=== PATIENT | female | born 1955 | race Caucasian/White ===

== ENCOUNTER 2016-07-13 15:05 | Emergency (ER) | payer MEDICARE, OTHER ==
[~2016-07-13] VITALS: Ht 160 cm; Wt 75.4 kg
[2016-07-13 15:22] VITALS: BP 97/57
[2016-07-13] MEDS ORDERED: LORA0.5T2 PO (15:30)
[2016-07-13] MEDS ORDERED: BETH5 PO (15:33)
[2016-07-13] MEDS ORDERED: LISI-660 PO (15:33)
[2016-07-13] MEDS ORDERED: CLOZ25TA4 PO (15:33)
[2016-07-13] MEDS ORDERED: DULO20CA30 PO (15:33)
[2016-07-13] MEDS ORDERED: TOPI25 PO (15:33)
[2016-07-13] MEDS ORDERED: CITA10TA68 PO (15:33)
[2016-07-13] MEDS ORDERED: ACETAMINOPHEN 325 MG TABLET PO ONE (16:15)
[2016-07-13] MEDS ORDERED: HYDROCODONE/ACETAMINOPHEN 10-325 MG TABLET PO ONE (17:00)
== END 2016-07-13 19:05 | disposition home or self-care (01) ==
LOC: EMS 15:06
DX: S73.102A Unspecified sprain of left hip, initial encounter (principal); M54.30 Sciatica, unspecified side; W19.XXXA Unspecified fall, initial encounter; Y93.89 Activity, other specified; Y92.89 Other specified places as the place of occurrence of the external cause; Y99.8 Other external cause status
CPT/HCPCS: 73521; 99284

== ENCOUNTER → 2017-01-14 | Outpatient (CLI) | payer MEDICARE, OTHER, MEDICAID ==
[~2017-01-14] MED LIST: BETH5 PO; CITA10TA68 PO; CLOZ25TA4 PO; DULO20CA30 PO; LISI-660 PO; LORA0.5T2 PO; TOPI25 PO
== END | disposition home or self-care (01) ==
LOC: RADPV 09:40
PROVIDERS: ATTEND Hospitalist
DX: D25.2 Subserosal leiomyoma of uterus (principal)
CPT/HCPCS: 76770

== ENCOUNTER 2017-05-08 20:49 | Inpatient (IN) | payer MEDICARE, OTHER ==
[~2017-05-08] VITALS: Ht 160 cm; Wt 78.5 kg
[2017-05-08 21:05] VITALS: BP 117/76
[2017-05-08] MEDS ORDERED: CLON.5 PO (22:00)
[2017-05-08] MEDS ORDERED: BETH25 PO (22:00)
[2017-05-08] MEDS ORDERED: CLOZ100 PO ×2 (22:00)
[2017-05-08] MEDS ORDERED: HYDR-4061 PO (22:00)
[2017-05-08] MEDS ORDERED: LORA0.5T2 PO (22:00)
[2017-05-08] MEDS ORDERED: CloZAPine 100 MG TABLET PO SCH (22:45)
[2017-05-08] MEDS ORDERED: ACETAMINOPHEN 325 MG TABLET PO PRN (22:45)
[2017-05-08] MEDS ORDERED: ONDANSETRON HCL 4 MG/2 ML VIAL IVP PRN (22:45)
[2017-05-08] MEDS ORDERED: LORazepam 2 MG/ML VIAL IVP PRN (22:45)
[2017-05-08] MEDS ORDERED: CloZAPine 100 MG TABLET PO ONE (23:15)
[2017-05-08] MEDS: MVI, ADULT NO.1 WITH VIT K 10 ML in DEXTROSE 5%-0.9% SODIUM CHL 1,000 ML IV SCH ×2 (23:19)
[2017-05-08 23:38] LABS: BASOPHILS % (AUTO) 0.5 % (0.0-2.0); EOSINOPHILS % (AUTO) 1.2 % (1.0-6.0); HEMATOCRIT 35.6 % (36-46); HEMOGLOBIN 11.8 g/dL (12.0-16.0); LYMPHOCYTES # (AUTO) 3.2 K/uL (1.0-4.8); LYMPHOCYTES % (AUTO) 24.6 % (22.0-44.0); MEAN CORPUSCULAR HEMOGLOBIN 29.8 pg (26.0-34.0); MEAN CORPUSCULAR HGB CONC 33.2 G/dL (31.0-37.0); MEAN CORPUSCULAR VOLUME 90 fL (80-100); MONOCYTES # (AUTO) 1.5 K/uL (0.1-1.0); MONOCYTES % (AUTO) 11.3 % (2.0-9.0); NEUTROPHILS # (AUTO) 8.1 K/uL (1.8-7.7); NEUTROPHILS % (AUTO) 62.4 % (40.0-70.0); PLATELET COUNT (AUTO) 404 K/uL (150-450); RED BLOOD CELL COUNT(AUTO) 3.97 MIL/uL (4.00-5.20); RED CELL DISTRIBUTION WIDTH 14.5 % (11.5-14.5)
[2017-05-08 23:45] VITALS: BP 109/66
[2017-05-08 23:47] LABS: ANION GAP 7 mmol/L (8-16); CALCIUM, TOTAL 8.8 mg/dL (8.8-10.5); CARBON DIOXIDE 28 mmol/L (22-29); CHLORIDE 105 mmol/L (98-107); CREATININE 0.88 mg/dL (0.60-1.30); GLOMERULAR FILTR. RATE CALC > 60 mL/min (>60); GLUCOSE,RANDOM 89 mg/dL (70-110); POTASSIUM 3.7 mmol/L (3.5-5.1); SODIUM SERUM 140 mmol/L (136-145); UREA NITROGEN, BLOOD 21 mg/dL (7-18)
[2017-05-08 23:56] LABS: ALANINE AMINOTRANSFERASE 34 U/L (12-78); ALBUMIN 3.2 g/dL (3.4-5.0); ALKALINE PHOSPHATASE 102 U/L (46-116); ASPARTATE AMINOTRANSFERASE 21 U/L (15-37); BILIRUBIN,TOTAL 0.3 mg/dL (0.1-1.0); TOTAL PROTEIN, SERUM 6.5 g/dL (6.4-8.2)
[2017-05-09 04:15] VITALS: BP 116/73
[2017-05-09 04:44] LABS: APPEARANCE,URINE CLEAR (CLEAR); BILIRUBIN,URINE NEGATIVE (NEGATIVE); GLUCOSE, URINE (UA) NEGATIVE (NEGATIVE); KETONES,URINE NEGATIVE (NEGATIVE); LEUKOCYTE ESTERASE ,URINE TRACE (NEGATIVE); NITRATE,URINE NEGATIVE (NEGATIVE); OCCULT BLOOD,URINE NEGATIVE (NEGATIVE); PROTEIN,URINE NEGATIVE (NEGATIVE); UROBILINOGEN,URINE 0.2 mg/dL (<=1.0)
[2017-05-09 05:13] LABS: RBC,URINE 0-2 /HPF (0-2)
[2017-05-09 05:14] LABS: BACTERIA,URINE Rare /HPF (None Seen); SQUAMOUS EPITHELIAL CELL,UR Rare /LPF (None Seen)
[2017-05-09 07:57] VITALS: BP 151/93
[2017-05-09] MEDS: BETHANECHOL CHLORIDE 25 MG TABLET PO SCH (08:31)
[2017-05-09] MEDS: CITALOPRAM HYDROBROMIDE 20 MG TABLET PO SCH (09:00)
[2017-05-09] MEDS ORDERED: CITALOPRAM HYDROBROMIDE 10 MG TABLET PO SCH ×2 (09:00)
[2017-05-09] MEDS: ClonazePAM 0.5 MG TABLET PO SCH ×2 (10:00→20:53)
[2017-05-09] MEDS: GABAPENTIN 300 MG CAPSULE PO SCH ×3 (10:00→20:53)
[2017-05-09] MEDS: DULoxetine HCL 60 MG CAPSULE PO SCH (10:00)
[2017-05-09] MEDS: DOCUSATE SODIUM 250 MG CAPSULE PO SCH ×2 (10:00→20:53)
[2017-05-09] MEDS: METOPROLOL SUCCINATE 50 MG ER TABLET PO SCH (10:00)
[2017-05-09] MEDS: CloZAPine 100 MG TABLET PO SCH ×2 (10:00→20:54)
[2017-05-09] MEDS: LISINOPRIL 5 MG TABLET PO SCH (10:00)
[2017-05-09] MEDS: MONTELUKAST SODIUM 10 MG TABLET PO SCH (10:00)
[2017-05-09] MEDS: CALCIUM OYSTER SHELL 500 MG TABLET PO SCH ×3 (10:00→20:53)
[2017-05-09 11:31] VITALS: BP 133/85
[2017-05-09] MEDS: HYDROCODONE/ACETAMINOPHEN 5-325 MG TABLET PO PRN ×2 (13:34→20:58)
[2017-05-09] MEDS: MVI, ADULT NO.1 WITH VIT K 10 ML in DEXTROSE 5%-0.9% SODIUM CHL 1,000 ML IV SCH ×2 (15:26)
[2017-05-09] MEDS: RisperiDONE 2 MG TABLET PO SCH (15:26)
[2017-05-09 16:19] VITALS: BP 139/87
[2017-05-09] MEDS ORDERED: IPRATROPIUM BROMIDE 0.5 MG/2.5 ML NEB SOLUTION NEB PRN (16:30)
[2017-05-09] MEDS ORDERED: 0.9% SODIUM CHLORIDE 10 ML SYRINGE IVP PRN (16:30)
[2017-05-09] MEDS ORDERED: ZOLPIDEM TARTRATE 5 MG TABLET PO PRN (16:30)
[2017-05-09] MEDS ORDERED: ALBUTEROL SULFATE 2.5 MG/0.5 ML NEB SOLUTION NEB PRN (16:30)
[2017-05-09] MEDS ORDERED: HYDROCODONE/ACETAMINOPHEN 5-325 MG TABLET PO PRN (16:30)
[2017-05-09] MEDS ORDERED: ACETAMINOPHEN 650 MG/20.3 ML SOLUTION UDCUP PO PRN (16:30)
[2017-05-09] MEDS: ALBUTEROL SULFATE 2.5 MG/0.5 ML NEB SOLUTION NEB SCH ×2 (16:42→22:30)
[2017-05-09] MEDS: IPRATROPIUM BROMIDE 0.5 MG/2.5 ML NEB SOLUTION NEB SCH ×2 (16:42→22:30)
[2017-05-09] MEDS: PANTOPRAZOLE SODIUM 40 MG/VIAL IVP SCH (17:31)
[2017-05-09] MEDS: CefTRIAXone SODIUM 1 GM in DEXTROSE 5%-WATER 10 ML IV SCH (17:31)
[2017-05-09] MEDS: HEPARIN SODIUM,PORCINE 5,000 UNITS/ML VIAL SQ SCH ×2 (17:45→23:47)
[2017-05-09 19:48] VITALS: BP 113/70
[2017-05-09] MEDS: TOPIRAMATE 100 MG TABLET PO SCH (20:54)
[2017-05-09] MEDS ORDERED: TOPIRAMATE 25 MG TABLET PO SCH (21:00)
[2017-05-09] MEDS ORDERED: MVI, ADULT NO.1 WITH VIT K 10 ML in DEXTROSE 5%-WATER 1,000 ML IV SCH ×2 (22:05)
[2017-05-10 04:49] VITALS: BP 135/77
[2017-05-10 06:46] LABS: BASOPHILS % (AUTO) 0.6 % (0.0-2.0); EOSINOPHILS % (AUTO) 1.4 % (1.0-6.0); HEMATOCRIT 37.1 % (36-46); HEMOGLOBIN 12.4 g/dL (12.0-16.0); LYMPHOCYTES # (AUTO) 1.9 K/uL (1.0-4.8); LYMPHOCYTES % (AUTO) 22.5 % (22.0-44.0); MEAN CORPUSCULAR HEMOGLOBIN 30.3 pg (26.0-34.0); MEAN CORPUSCULAR HGB CONC 33.5 G/dL (31.0-37.0); MEAN CORPUSCULAR VOLUME 91 fL (80-100); MONOCYTES % (AUTO) 11.6 % (2.0-9.0); NEUTROPHILS # (AUTO) 5.4 K/uL (1.8-7.7); NEUTROPHILS % (AUTO) 63.9 % (40.0-70.0); PLATELET COUNT (AUTO) 439 K/uL (150-450); RED CELL DISTRIBUTION WIDTH 14.6 % (11.5-14.5)
[2017-05-10 06:52] LABS: ANION GAP 7 mmol/L (8-16); CALCIUM, TOTAL 8.7 mg/dL (8.8-10.5); CARBON DIOXIDE 27 mmol/L (22-29); CHLORIDE 107 mmol/L (98-107); CREATININE 0.83 mg/dL (0.60-1.30); GLOMERULAR FILTR. RATE CALC > 60 mL/min (>60); GLUCOSE,RANDOM 101 mg/dL (70-110); SODIUM SERUM 141 mmol/L (136-145); UREA NITROGEN, BLOOD 18 mg/dL (7-18)
[2017-05-10 07:45] VITALS: BP 143/94
[2017-05-10] MEDS: ALBUTEROL SULFATE 2.5 MG/0.5 ML NEB SOLUTION NEB SCH ×3 (08:19→20:25)
[2017-05-10] MEDS: PANTOPRAZOLE SODIUM 40 MG/VIAL IVP SCH (08:19)
[2017-05-10] MEDS: IPRATROPIUM BROMIDE 0.5 MG/2.5 ML NEB SOLUTION NEB SCH ×3 (08:19→20:25)
[2017-05-10] MEDS: HEPARIN SODIUM,PORCINE 5,000 UNITS/ML VIAL SQ SCH ×2 (08:20→16:08)
[2017-05-10] MEDS: ClonazePAM 0.5 MG TABLET PO SCH ×2 (08:21→20:47)
[2017-05-10] MEDS: GABAPENTIN 300 MG CAPSULE PO SCH ×3 (08:22→20:47)
[2017-05-10] MEDS: CloZAPine 100 MG TABLET PO SCH ×2 (08:23→20:47)
[2017-05-10] MEDS: CALCIUM OYSTER SHELL 500 MG TABLET PO SCH ×3 (08:24→20:47)
[2017-05-10] MEDS: MONTELUKAST SODIUM 10 MG TABLET PO SCH (08:24)
[2017-05-10] MEDS: METOPROLOL SUCCINATE 50 MG ER TABLET PO SCH (08:24)
[2017-05-10] MEDS: BETHANECHOL CHLORIDE 25 MG TABLET PO SCH (08:25)
[2017-05-10] MEDS: CITALOPRAM HYDROBROMIDE 20 MG TABLET PO SCH (08:26)
[2017-05-10] MEDS: DULoxetine HCL 60 MG CAPSULE PO SCH ×2 (08:26→22:29)
[2017-05-10] MEDS: RisperiDONE 2 MG TABLET PO SCH (08:26)
[2017-05-10] MEDS: DOCUSATE SODIUM 250 MG CAPSULE PO SCH ×2 (08:31→20:48)
[2017-05-10] MEDS: LISINOPRIL 5 MG TABLET PO SCH (08:36)
[2017-05-10] MEDS: POLYETHYLENE GLYCOL 3350 17 GM PACKET PO PRN (08:47)
[2017-05-10 11:20] VITALS: BP 127/86
[2017-05-10 15:10] VITALS: BP 141/88
[2017-05-10] MEDS: HYDROCODONE/ACETAMINOPHEN 5-325 MG TABLET PO PRN (18:15)
[2017-05-10] MEDS: CefTRIAXone SODIUM 1 GM in DEXTROSE 5%-WATER 10 ML IV SCH (18:17)
[2017-05-10 19:38] VITALS: BP 131/81
[2017-05-10] MEDS: TOPIRAMATE 100 MG TABLET PO SCH (20:47)
[2017-05-10] MEDS: MVI, ADULT NO.1 WITH VIT K 10 ML in DEXTROSE 5%-WATER 1,000 ML IV SCH ×2 (22:28)
[2017-05-10 23:00] VITALS: BP 131/75
[2017-05-11] MEDS: HEPARIN SODIUM,PORCINE 5,000 UNITS/ML VIAL SQ SCH ×2 (00:18→08:43)
[2017-05-11] MEDS: MVI, ADULT NO.1 WITH VIT K 10 ML in DEXTROSE 5%-WATER 1,000 ML IV SCH ×2 (00:18)
[2017-05-11] MEDS: ALBUTEROL SULFATE 2.5 MG/0.5 ML NEB SOLUTION NEB SCH ×2 (02:17→09:22)
[2017-05-11] MEDS: IPRATROPIUM BROMIDE 0.5 MG/2.5 ML NEB SOLUTION NEB SCH ×2 (02:17→09:22)
[2017-05-11 04:00] VITALS: BP 134/79
[2017-05-11 05:35] LABS: BASOPHILS % (AUTO) 0.6 % (0.0-2.0); EOSINOPHILS % (AUTO) 1.2 % (1.0-6.0); HEMATOCRIT 37.1 % (36-46); HEMOGLOBIN 12.7 g/dL (12.0-16.0); LYMPHOCYTES # (AUTO) 2.4 K/uL (1.0-4.8); LYMPHOCYTES % (AUTO) 22.9 % (22.0-44.0); MEAN CORPUSCULAR HEMOGLOBIN 30.9 pg (26.0-34.0); MEAN CORPUSCULAR HGB CONC 34.3 G/dL (31.0-37.0); MEAN CORPUSCULAR VOLUME 90 fL (80-100); MONOCYTES % (AUTO) 9.7 % (2.0-9.0); NEUTROPHILS % (AUTO) 65.6 % (40.0-70.0); PLATELET COUNT (AUTO) 425 K/uL (150-450); RED BLOOD CELL COUNT(AUTO) 4.12 MIL/uL (4.00-5.20); RED CELL DISTRIBUTION WIDTH 14.6 % (11.5-14.5)
[2017-05-11] MEDS ORDERED: ALENDRONATE SODIUM 70 MG TABLET PO SCH (06:30)
[2017-05-11 07:20] VITALS: BP 129/82
[2017-05-11] MEDS: PANTOPRAZOLE SODIUM 40 MG/VIAL IVP SCH (08:39)
[2017-05-11] MEDS: ClonazePAM 0.5 MG TABLET PO SCH (08:39)
[2017-05-11] MEDS: METOPROLOL SUCCINATE 50 MG ER TABLET PO SCH (08:39)
[2017-05-11] MEDS: DOCUSATE SODIUM 250 MG CAPSULE PO SCH (08:39)
[2017-05-11] MEDS: HYDROCODONE/ACETAMINOPHEN 5-325 MG TABLET PO PRN (08:40)
[2017-05-11] MEDS: CALCIUM OYSTER SHELL 500 MG TABLET PO SCH (08:40)
[2017-05-11] MEDS: GABAPENTIN 300 MG CAPSULE PO SCH (08:41)
[2017-05-11] MEDS: BETHANECHOL CHLORIDE 25 MG TABLET PO SCH (08:41)
[2017-05-11] MEDS: DULoxetine HCL 60 MG CAPSULE PO SCH (08:43)
[2017-05-11] MEDS: MONTELUKAST SODIUM 10 MG TABLET PO SCH (08:43)
[2017-05-11] MEDS: POLYETHYLENE GLYCOL 3350 17 GM PACKET PO PRN (08:56)
[2017-05-11] MEDS ORDERED: LISINOPRIL 20 MG TABLET PO SCH (09:00)
[2017-05-11] MEDS ORDERED: CloZAPine 100 MG TABLET PO SCH (09:00)
[2017-05-11 11:27] VITALS: BP 120/70
[2017-05-11 14:03] LABS: GLUCOMETER DEV NAME(LOC) PV 4E; GLUCOSE,POINT OF CARE 116 MG/DL (70-110)
== END 2017-05-11 14:10 | disposition home or self-care (01) | DRG 872 ==
LOC: 4E 21:10
PROVIDERS: ADMIT Internal Medicine; ATTEND Internal Medicine
DX: A41.9 Sepsis, unspecified organism (principal); R45.851 Suicidal ideations; F25.1 Schizoaffective disorder, depressive type; N12 Tubulo-interstitial nephritis, not specified as acute or chronic; I10 Essential (primary) hypertension; M54.30 Sciatica, unspecified side; E86.0 Dehydration; F41.9 Anxiety disorder, unspecified; G89.29 Other chronic pain; M54.9 Dorsalgia, unspecified; Z85.850 Personal history of malignant neoplasm of thyroid; Z88.8 Allergy status to other drugs, medicaments and biological substances
CPT/HCPCS: 82962; 83735; 84443; 87086; 94640; C9113; J0696; J1644; J3490; J7042; J7060